=== PATIENT | male | born 1965 | race Caucasian/White ===

== ENCOUNTER → 2024-02-24 07:29 | Outpatient (REF) | payer OTHER, SELFPAY | LOC: RCS 07:29 | PROVIDERS: ATTENDING PHYSICIAN Internal Medicine Cardiovascular Disease; FAMILY PHYSICIAN Physician Assistant | DX: R07.9 Chest pain, unspecified (principal); Z82.49 Family history of ischemic heart disease and other diseases of the circulatory system | CPT/HCPCS: 93017 ==